=== PATIENT | female | born 1970 | race Two or more races ===

== ENCOUNTER 2024-10-09 03:06 | Emergency (ER) | payer BC ==
[~2024-10-09] VITALS: Ht 167.6 cm; Wt 73.5 kg
[2024-10-09] MEDS ORDERED: FAMOTIDINE/PF 20 MG/2 ML VIAL IV PUSH STA (04:52)
[2024-10-09] MEDS ORDERED: PROMETHAZINE HCL 50 MG/ML AMPUL IM STA (04:52)
[2024-10-09] MEDS ORDERED: KETOROLAC TROMETHAMINE 30 MG VIAL IV STA (04:53)
[2024-10-09] MEDS ORDERED: 0.9 % SODIUM CHLORIDE 1,000 ML IV ONE (05:00)
[2024-10-09 05:10] LABS: HEMATOCRIT 42.3 % (36.0-45.00); HEMOGLOBIN 14.6 g/dL (12.0-15.00); MEAN CELL VOLUME 88.9 fL (80.00-100.00); MEAN CORPUSCULAR HEMOGLOBIN 30.7 pg (27.00-32.0); MEAN CORPUSCULAR HGB CONC 34.5 g/dl (32.0-36.0); PLATELET COUNT 204 K/uL (150-450); RED BLOOD COUNT 4.75 M/uL (4.00-6.00); RED CELL DISTRIBUTION WIDTH 13.2 % (11.5-14.5)
[2024-10-09 05:31] LABS: ALBUMIN 3.9 gm/dL (3.4-5.0); BILIRUBIN TOTAL 0.65 mg/dL (0.3-1.2); CALCIUM 9.1 mg/dL (8.5-10.1); CREATININE SERUM 1.01 mg/dL (0.55-1.02); GFR 56.91; GLOBULINA 4.5 G/DL (2.4-3.5); POTASSIUM 4.07 mEq/L (3.5-5.1); TOTAL PROTEIN 8.4 gm/dL (6.4-8.2)
[2024-10-09] MEDS ORDERED: PEPCID40 MG PO (08:09)
[2024-10-09] MEDS ORDERED: ZOFRAN8 MG PO (08:09)
== END 2024-10-09 08:37 ==
LOC: ER 03:06
PROVIDERS: General Practice
DX: R11.10 Vomiting, unspecified (principal); R19.7 Diarrhea, unspecified; R42 Dizziness and giddiness; G89.11 Acute pain due to trauma; M54.2 Cervicalgia; M25.552 Pain in left hip; M79.642 Pain in left hand